=== PATIENT | male | born 1995 | race Hispanic/Latino ===

== ENCOUNTER 2021-01-17 19:54 | Emergency (ER) | payer SELFPAY ==
[2021-01-17 20:16] LABS: Absolute Lymphocytes (CBC) 2.6 K/uL (0.7-4.9); Basophils % 0.3 % (0-1.3); Hematocrit 41.8 % (39.6-49.0); Lymphocytes % 38.6 % (15.3-44.8); MPV 7.3 fL (7.6-11.3); RBC Red Blood Cell Count 4.45 M/uL (4.33-5.43)
[2021-01-17 20:29] LABS: Potassium 3.4 mmol/L (3.5-5.1)
[2021-01-17] MEDS ORDERED: MORPHINE 4 MG/ML SYR ONE (20:32)
[2021-01-17] MEDS ORDERED: NA CHLORIDE 0.9% 1,000 ML ONE (20:32)
[2021-01-17] MEDS ORDERED: ONDANSETRON 4 MG/2 ML VIAL ONE (20:32)
--- NOTE | 2021-01-17 21:03 | RAD REPORT ---
EXAM DESCRIPTION: CT - Head C Spine Palomo Landrum - 01/17/2021 8:32 pm CLINICAL HISTORY: Head and neck injury with chest and abdominal pain status post fall. Head and neck pain . TECHNIQUE: Computed axial tomography of the head and cervical spine was obtained Computed axial tomography of the chest, abdomen and pelvis was obtained. 100 cc Isovue-300 was given intravenously coronal and sagittal reconstruction was performed. All CT scans are performed using dose optimization technique as appropriate and may include automated exposure control or mA/KV adjustment according to patient size. COMPARISON: none FINDINGS: An intracranial bleed is not seen. The ventricles are normal in caliber. An extra-axial fl uid collection is not noted. Fluid within the sinuses is not seen A cervical fracture is not seen. No dislocation is seen. A mediastinal hematoma is not noted. A pleural effusion is not present. A lung contusion is not seen. Minimal right pleural thickening 2 The liver, spleen, pancreas, adrenals, kidneys and bladder do not demonstrate a traumatic injury IMPRESSION: No acute intracranial abnormality is seen A cervical fracture is not visualized. If the patient continues have symptoms to suggest intracranial /spinal cord pathology then MRI would be recommended. No traumatic injury involving the chest, abdomen or pelvis is seen.
--- NOTE | 2021-01-17 21:20 | ER ---
Nurse's Notes [facility] Name: Luis Alberto David Age: 25 yrs Sex: Male : 1995 Arrival Date: 01/17/2021 Time: 19:55 Bed 7 Private MD: Diagnosis: Fall from, out of or through roof, initial encounter;Chest pain, unspecified-right chest wall;Pain in right hip Presentation: 01/17 19:56 Chief complaint: EMS states: fall from roof about 12-14 feet, landed in muddy area, em reports right rib pain and right hip pain, no obvious deformities noted. Care prior to arrival: None. Mechanism of Injury: Fall approximately 12 feet. Trauma event details: Injury occurred in the [facility]. 19:56 Acuity: ZAC 2 em 19:56 Method Of Arrival: EMS: [facility] em 19:56 Coronavirus screen: Vaccine status: Patient reports being unvaccinated. Ebola Screen: em Patient negative for fever greater than or equal to 101.5 degrees Fahrenheit, and additional compatible Ebola Virus Disease symptoms Patient denies exposure to infectious person. Patient denies travel to an Ebola-affected area in the 21 days before illness onset. No symptoms or risks identified at this time. Initial Sepsis Screen: Does the patient meet any 2 criteria? RR > 20 per min. Does the patient have a suspected source of infection? No. Patient's initial sepsis screen is negative. Risk Assessment: Do you want to hurt yourself or someone else? Patient reports no desire to harm self or others. Onset of symptoms was January 17, 2021. Trauma Activation: Physician: ED Physician; Name: Enrique; Notified At: 19:55; Arrived At: Physician: General Surgeon; Name: ; Notified At: 19:55; Arrived At: Physician: Radiology; Name: ; Notified At: 19:55; Arrived At: Physician: Respiratory; Name: ; Notified At: 19:55; Arrived At: Physician: Lab; Name: ; Notified At: 19:55; Arrived At: Historical: - Allergies: 20:00 No Known Allergies; em - PMHx: 20:00 None; em - PSHx: 20:00 None; em - Immunization history: Last tetanus immunization: - up to date. - Social history:: Smoking status: Patient denies any tobacco usage or history of. Screenin:56 Abuse screen: Denies threats or abuse. Nutritional screening: No deficits noted. em Tuberculosis screening: No symptoms or risk factors identified. Primary Survey: 19:56 NO uncontrolled hemorrhage observed. A: The patient is alert. Breathing/Chest: em Respiratory pattern: regular. Circulation: Skin color: pink. Disability Alert. Exposure/Environment: All clothing and personal items were removed. Forensic evidence collection is not deemed to be indicated at this time. Items placed in patient belonging bag. There is no evidence of uncontrolled external bleeding. Assessment: 19:56 General: Appears in no apparent distress. uncomfortable, Behavior is calm, cooperative. em Pain: Complains of pain in left lateral anterior chest and right hip. Neuro: Level of Consciousness is awake, alert, obeys commands, Oriented to person, place, time, situation. Cardiovascular: Capillary refill < 3 seconds Patient's skin is warm and dry. Respiratory: Airway is patent Respiratory effort is even, unlabored, Respiratory pattern is regular, symmetrical. Derm: Skin is intact, is healthy with good turgor, Skin is pink, warm \T\ dry. Musculoskeletal: Capillary refill < 3 seconds, Range of motion: limited in right shoulder. 21:33 Reassessment: Patient appears in no apparent distress at this time. Patient and/or em family updated on plan of care and expected duration. Pain level reassessed. Patient is alert, oriented x 3, equal unlabored respirations, skin warm/dry/pink. Vital Signs: 19:56 BP 116 / 84; Pulse 60; Resp 18; Temp 97.8(O); Pulse Ox 99% on R/A; Weight 74.84 kg; em Height 5 ft. 0 in. (152.40 cm); 21:35 BP 115 / 79; Pulse 54; Resp 16; Pulse Ox 99% on R/A; em 19:56 Body Mass Index 32.22 (74.84 kg, 152.40 cm) em [place] Coma Score: 19:56 Eye Response: spontaneous(4). Verbal Response: oriented(5). Motor Response: obeys em commands(6). Total: 15. Trauma Score (Adult): 19:56 Eye Response: spontaneous(1); Verbal Response: oriented(1); Motor Response: obeys em commands(2); Systolic BP: > 89 mm Hg(4); Respiratory Rate: 10 to 29 per min(4); Sanford Score: 15; Trauma Score: 12 ED Course: 19:55 Patient arrived in ED. em 19:55 Padma Mooney FNP-C [facility]. kb 19:55 Itz Nunez MD is Attending Physician. kb 19:56 Patient maintains SpO2 saturation greater than 95% on room air. em 19:58 Triage completed. em 20:00 Thermoregulation: warm blanket given to patient. em 20:00 Arm band placed on. em 20:00 Patient has correct armband on for positive identification. em 20:07 Inserted saline lock: 18 gauge in left antecubital area, using aseptic technique. Blood cw2 collected. 20:07 Initial lab(s) drawn, by me, sent to lab. cw2 20:33 CT Traumagram (Head C Spine CAP W Con) In Process Unspecified. EDMS 20:33 Andrzej Saavedra, RN is Primary Nurse. em 21:32 No provider procedures requiring assistance completed. IV discontinued, intact, em bleeding controlled, No redness/swelling at site. Pressure dressing applied. Administered Medications: 20:13 Drug: NS 0.9% 1000 ml Route: IV; Rate: 1000 ml; Site: left antecubital; cw2 21:31 Follow up: IV Status: Completed infusion; IV Intake: 1000ml em 20:14 Drug: morphine 4 mg Route: IVP; Site: left antecubital; cw2 21:31 Follow up: Response: No adverse reaction; Marked relief of symptoms em 20:14 Drug: Zofran (Ondansetron) 4 mg Route: IVP; Site: left antecubital; cw2 21:31 Follow up: Response: No adverse reaction; Marked relief of symptoms em 21:31 Drug: Cum[place] (HYDROcodone-acetaminophen) 10 mg-325 mg 1 tabs Route: PO; em 21:32 Follow up: Response: Medication administered at discharge. em Intake: 21:31 IV: 1000ml; Total: 1000ml. em 21:34 PO: 30ml (Water); Total: 1030ml. em Outcome: 21:19 Discharge ordered by . kb 21:33 Discharged to home via wheelchair, with family. em 21:33 Condition: stable 21:33 Discharge instructions given to patient, Instructed on discharge instructions, follow up and referral plans. medication usage, Demonstrated understanding of instructions, follow-up care, medications, Prescriptions given X 2. 21:34 Patient's length of stay was not longer than 2 hours. em 21:35 Patient left the ED. em Signatures: Dispatcher [employer] Padma Brothers, JUDY-Valentina KIM-Andrzej Granado, RN RN Gene Moreno RN RN cw2
--- NOTE | 2021-01-17 21:20 | EDPHYS ---
Physician Documentation [facility] Name: Luis Alberto David Age: 25 yrs Sex: Male : 1995 Arrival Date: 01/17/2021 Time: 19:55 Bed 7 Private MD: ED Physician Itz Nunez HPI: 01/17 21:37 This 25 yrs old Male presents to ER via EMS with complaints of Fall Injury. kb 21:37 Details of fall: The patient fell from a height, off a roof, in a freefall-type manner. kb Onset: The symptoms/episode began/occurred just prior to arrival. Associated injuries: The patient sustained injury to the chest, specifically the right lateral anterior chest, pain with breathing, pain with movement, tenderness, right hip, painful injury. Severity of symptoms: At their worst the symptoms were moderate, in the emergency department the symptoms are unchanged. The patient has not experienced similar symptoms in the past. The patient has not recently seen a physician. Historical: - Allergies: 20:00 No Known Allergies; em - PMHx: 20:00 None; em - PSHx: 20:00 None; em - Immunization history: Last tetanus immunization: - up to date. - Social history:: Smoking status: Patient denies any tobacco usage or history of. ROS: 21:35 Constitutional: Negative for fever, chills, and weight loss. kb 21:35 Cardiovascular: Positive for chest pain, with cough, with movement, of the right lateral anterior chest, Negative for edema, orthopnea, palpitations, paroxysmal nocturnal dyspnea. 21:35 MS/extremity: Positive for injury or acute deformity, pain, of the right hip. 21:35 All other systems are negative. Exam: 21:36 Constitutional: This is a well developed, well nourished patient who is awake, alert, kb and in no acute distress. Head/Face: Normocephalic, atraumatic. Cardiovascular: Regular rate and rhythm with a normal S1 and S2. No gallops, murmurs, or rubs. No pulse deficits. Respiratory: Respirations even and unlabored. No increased work of breathing, no retractions or nasal flaring. Abdomen/GI: Soft, non-tender. No distention Skin: Warm, dry with normal turgor. Normal color. Neuro: Awake and alert, GCS 15, oriented to person, place, time, and situation. Moves all extremities. Normal gait. Psych: Awake, alert, with orientation to person, place and time. Behavior, mood, and affect are within normal limits. 21:36 Chest/axilla: Inspection: normal, Palpation: tenderness, that is moderate, that is severe, of the right lateral anterior chest, that totally reproduces the patient's complaints. 21:36 Musculoskeletal/extremity: Extremities: grossly normal except: noted in the right hip: pain, ROM: intact in all extremities, Circulation is intact in all extremities. Sensation intact. Weight bearing: able to fully bear weight. Vital Signs: 19:56 BP 116 / 84; Pulse 60; Resp 18; Temp 97.8(O); Pulse Ox 99% on R/A; Weight 74.84 kg; em Height 5 ft. 0 in. (152.40 cm); 21:35 BP 115 / 79; Pulse 54; Resp 16; Pulse Ox 99% on R/A; em 19:56 Body Mass Index 32.22 (74.84 kg, 152.40 cm) em [place] Coma Score: 19:56 Eye Response: spontaneous(4). Verbal Response: oriented(5). Motor Response: obeys em commands(6). Total: 15. Trauma Score (Adult): 19:56 Eye Response: spontaneous(1); Verbal Response: oriented(1); Motor Response: obeys em commands(2); Systolic BP: > 89 mm Hg(4); Respiratory Rate: 10 to 29 per min(4); [place] Score: 15; Trauma Score: 12 MDM: 19:56 Patient medically screened. kb 21:35 Differential diagnosis: contusion, fracture, multiple trauma. Data reviewed: vital kb signs, nurses notes. Data interpreted: Pulse oximetry: on room air is 99 %. Interpretation: normal. Counseling: I had a detailed discussion with the patient and/or guardian regarding: the historical points, exam findings, and any diagnostic results supporting the discharge/admit diagnosis, lab results, radiology results, the need for outpatient follow up, a family practitioner, to return to the emergency department if symptoms worsen or persist or if there are any questions or concerns that arise at home. 01/17 19:56 Order name: Basic Metabolic Panel; Complete Time: 20:31 kb 01/17 19:56 Order name: CBC with Diff; Complete Time: 20:24 kb 01/17 19:56 Order name: Type And Screen; Complete Time: 21:31 kb 01/17 19:56 Order name: CT Traumagram (Head C Spine CAP W Con); Complete Time: 21:07 kb 01/17 19:56 Order name: Labs collected and sent; Complete Time: 21:32 kb Administered Medications: 20:13 Drug: NS 0.9% 1000 ml Route: IV; Rate: 1000 ml; Site: left antecubital; cw2 21:31 Follow up: IV Status: Completed infusion; IV Intake: 1000ml em 20:14 Drug: morphine 4 mg Route: IVP; Site: left antecubital; cw2 21:31 Follow up: Response: No adverse reaction; Marked relief of symptoms em 20:14 Drug: Zofran (Ondansetron) 4 mg Route: IVP; Site: left antecubital; cw2 21:31 Follow up: Response: No adverse reaction; Marked relief of symptoms em 21:31 Drug: Logan (HYDROcodone-acetaminophen) 10 mg-325 mg 1 tabs Route: PO; em 21:32 Follow up: Response: Medication administered at discharge. em Disposition: 01/18 05:50 Co-signature as Attending Physician, Itz Nunez MD. [email or web address] Disposition Summary: 01/17/21 21:19 Discharge Ordered Location: Home kb Condition: Stable kb Diagnosis - Fall from, out of or through roof, initial encounter kb - Chest pain, unspecified - right chest wall kb - Pain in right hip kb Followup: kb - With: Emergency Department - When: As needed - Reason: Worsening of condition Followup: kb - With: Private Physician - When: 2 - 3 days - Reason: Recheck today's complaints, Continuance of care, Re-evaluation by your physician Discharge Instructions: - Discharge Summary Sheet kb - Musculoskeletal Pain kb - Chest Wall Pain, [id number] kb Forms: - Medication Reconciliation Form kb - Thank You Letter kb - Antibiotic Education kb - Prescription Opioid Use kb Prescriptions: - Cyclobenzaprine 10 mg Oral Tablet - take 1 tablet by ORAL route every 8 hours As needed; 21 tablet; Refills: 0, kb Product Selection Permitted - Diclofenac Sodium 75 mg Oral tablet,delayed release (DR/EC) - take 1 tablet by ORAL route 2 times per day As needed; 30 tablet; Refills: 0, kb Product Selection Permitted Signatures: Dispatcher [employer] Padma Brothers, FREYAC JUDY-Andrzej Granado, RN RN em Itz Nunez MD MD mh7 Gene Hood RN RN cw2
[2021-01-17 21:42] VITALS: TEMP 97.8; O2SAT 99
[2021-01-17 21:43] VITALS: BP 115/79
[2021-01-17] MEDS ORDERED: HYDROCODONE/APAP 10/325 TAB ONE (21:53)
== END 2021-01-17 21:35 | disposition home or self-care (01) ==
LOC: ER 19:54
DX: R07.89 Other chest pain (principal); M25.551 Pain in right hip; W13.2XXA Fall from, out of or through roof, initial encounter
CPT/HCPCS: 36415; 70450; 71260; 72125; 74177; 80048; 82565; 85025; 86850; 86900; 86901; 96361; 96374; 96375; 99284; J2405; J7030; Q9967

== ENCOUNTER 2021-12-04 02:45 | Emergency (ER) | payer SELFPAY ==
[2021-12-04] MEDS ORDERED: TETANUS & DIPHTHERIA TOX,ADULT 0.5 ML VIAL ONE (03:55)
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
[2021-12-04 06:27] VITALS: BP 131/85; TEMP 98.4; O2SAT 100
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
== END 2021-12-04 06:19 | disposition home or self-care (01) ==
LOC: ER 02:45
DX: S00.81XA Abrasion of other part of head, initial encounter (principal); S00.83XA Contusion of other part of head, initial encounter; F10.929 Alcohol use, unspecified with intoxication, unspecified; Z23 Encounter for immunization
CPT/HCPCS: 70450; 70486; 72125; 76377; 90471; 90714; 99283